=== PATIENT | male | born 1960 | race Caucasian/White ===

== ENCOUNTER → 2022-11-22 | Outpatient (CLI) | payer MEDICAID ==
--- NOTE | 2022-11-22 09:15 | US ---
EXAMINATION TYPE: US duplex aorta DATE OF EXAM: 11/22/2022 COMPARISON: NONE CLINICAL INDICATION: Male, 62 years old with history of R09.89 SYMPTOMS AND SIGNS INVOLVING CIRCULATO RY SYSTEMS; Pulsatile mass mid abdomen TECHNIQUE: Multiple sonographic images of the abdominal aorta are obtained. FINDINGS: EXAM MEASUREMENTS: Abdominal Aorta: Proximal: 2.1 x 2.2cm Mid: 1.9 x 1.9cm Distal: 1.8 x 1.9cm Bifurcation: RT: 1.2 x 1.5cm LT: 1.4 x 1.3cm CABLE TESTERS HELPER NOTES: Visualized portions show no evidence of AAA at this time. No abdominal aortic aneurysm identified. IMPRESSION: No abdominal aortic aneurysm.
== END | disposition home or self-care (01) ==
LOC: RADUSWWP 07:42
PROVIDERS: ATTEND Family Medicine
DX: R09.89 Other specified symptoms and signs involving the circulatory and respiratory systems (principal)
CPT/HCPCS: 93979